=== PATIENT | male | born 1985 | race African-American/Black ===

== ENCOUNTER 2021-04-19 06:54 | Emergency (ER) | payer SELFPAY ==
[2021-04-19 08:08] LABS: #Basophils 0.1 10x3/uL (0.0-0.2); #Eosinphils 0.9 10x3/uL (0.0-0.5); #Monocytes 0.8 10x3/uL (0.0-1.1); %Basophils 0.6 % (0.0-2.0); %Monocytes 9.5 % (0.0-10.0); %Neutrophils 59.7 % (40.0-75.0); Hemoglobin 13.6 g/dL (13.5-17.5); Mean Corpuscular HGB CONC 30.6 g/dL (32.0-36.0); Mean Corpuscular Hemoglobin 24.5 pg (27.0-33.0); Mean Corpuscular Volume 80.2 fl (81.2-95.1); Platelet Count 220 10x3/uL (150-450); RBC Distribution Width 13.7 % (11.5-14.5); Red Blood Cell (RBC) Count 5.55 10x6/uL (4.32-5.72); White Blood Cell (WBC) Count 8.4 10x3/uL (3.5-10.5)
[2021-04-19] MEDS ORDERED: Sucralfate 1 GM/10 ML UDCUP ONE (08:09)
[2021-04-19] MEDS ORDERED: Pantoprazole 40 MG VIAL ONE (08:10)
[2021-04-19 08:28] LABS: ALT (SGPT) 24 U/L (8-55); AST (SGOT) 21 U/L (5-34); Albumin 4.2 g/dL (3.5-5.0); Alkaline Phosphatase 85 U/L (40-110); Anion Gap 13 mmol/L (10-20); BUN (Urea Nitrogen) 12 mg/dL (8.9-20.6); Bilirubin, Total 0.5 mg/dL (0.2-1.2); Calc. Creatinine Clearance 0 mL/min (70-130); Calcium 9.6 mg/dL (7.8-10.44); Carbon Dioxide 24 mmol/L (22-29); Chloride 108 mmol/L (98-107); Globulin 3.7 g/dL (2.4-3.5); Glucose 96 mg/dL (70-105); Lipase 85 U/L (8-78); Potassium 4.4 mmol/L (3.5-5.1); Protein, Total 7.9 g/dL (6.0-8.3); Sodium 141 mmol/L (136-145)
== END 2021-04-19 10:23 | disposition home or self-care (01) ==
LOC: CSHERS 06:54
DX: K85.90 Acute pancreatitis without necrosis or infection, unspecified (principal); K29.71 Gastritis, unspecified, with bleeding
CPT/HCPCS: 80053; 83690; 85025; 96374; C9113

== ENCOUNTER 2022-01-19 10:13 | Emergency (ER) | payer SELFPAY ==
[2022-01-19 11:04] LABS: #Basophils 0.1 10x3/uL (0.0-0.2); #Eosinphils 0.4 10x3/uL (0.0-0.5); #Monocytes 0.7 10x3/uL (0.0-1.1); #Neutrophils 4.1 10x3/uL (1.5-8.4); %Basophils 0.7 % (0.0-2.0); %Eosinophils 5.8 % (0.0-6.0); %Lymphocytes 20.7 % (18.0-47.0); %Monocytes 10.9 % (0.0-10.0); %Neutrophils 61.8 % (40.0-75.0); Hemoglobin 14.2 g/dL (13.5-17.5); Mean Corpuscular HGB CONC 32.1 g/dL (32.0-36.0); Mean Corpuscular Hemoglobin 24.7 pg (27.0-33.0); Mean Corpuscular Volume 76.9 fl (81.2-95.1); Mean Platelet Volume 10.6 fl (7.4-10.4); Platelet Count 223 10x3/uL (150-450); RBC Distribution Width 13.6 % (11.5-14.5); Red Blood Cell (RBC) Count 5.75 10x6/uL (4.32-5.72); White Blood Cell (WBC) Count 6.7 10x3/uL (3.5-10.5)
[2022-01-19 11:16] LABS: ALT (SGPT) 29 U/L (8-55); AST (SGOT) 25 U/L (5-34); Albumin 3.9 g/dL (3.5-5.0); Alkaline Phosphatase 67 U/L (40-110); Anion Gap 15 mmol/L (10-20); BUN (Urea Nitrogen) 13 mg/dL (8.9-20.6); Bilirubin, Total 0.6 mg/dL (0.2-1.2); Calc. Creatinine Clearance 0 mL/min (70-130); Calcium 8.9 mg/dL (7.8-10.44); Carbon Dioxide 23 mmol/L (22-29); Chloride 104 mmol/L (98-107); Globulin 3.8 g/dL (2.4-3.5); Glucose 93 mg/dL (70-105); Lipase 22 U/L (8-78); Potassium 4.2 mmol/L (3.5-5.1); Protein, Total 7.7 g/dL (6.0-8.3); Sodium 138 mmol/L (136-145)
== END 2022-01-19 12:10 | disposition home or self-care (01) ==
LOC: CSHERS 10:13
DX: R10.13 Epigastric pain (principal); K21.9 Gastro-esophageal reflux disease without esophagitis; J45.909 Unspecified asthma, uncomplicated; Z87.19 Personal history of other diseases of the digestive system
CPT/HCPCS: 80053; 83690; 85025; 99284

== ENCOUNTER 2022-03-14 17:19 | Emergency (ER) | payer OTHER, SELFPAY | END 2022-03-14 19:20 | disposition home or self-care (01) | LOC: CSHERS 17:19 | DX: S09.90XA Unspecified injury of head, initial encounter (principal); M54.2 Cervicalgia; G89.11 Acute pain due to trauma; K21.9 Gastro-esophageal reflux disease without esophagitis; V49.40XA Driver injured in collision with unspecified motor vehicles in traffic accident, initial encounter | CPT/HCPCS: 70450; 72125; 93005 ==

== ENCOUNTER 2023-08-17 10:26 | Emergency (ER) | payer OTHER, SELFPAY ==
[~2023-08-17 10:26] MED LIST: Iopamidol 300 61% 100 ML VIAL FS ONE
[2023-08-17] MEDS ORDERED: Lidocaine 2% Viscous Solution 10 ML, Aluminum & Magnesium Hydroxide 30 ML SSW SCH (11:00)
[2023-08-17 11:14] LABS: #Eosinphils 0.3 10x3/uL (0.0-0.5); #Monocytes 0.7 10x3/uL (0.0-1.1); #Neutrophils 5.3 10x3/uL (1.5-8.4); %Basophils 0.5 % (0.0-2.0); %Eosinophils 3.4 % (0.0-6.0); %Lymphocytes 23.6 % (18.0-47.0); %Monocytes 8.1 % (0.0-10.0); %Neutrophils 64.3 % (40.0-75.0); Hematocrit 45.8 % (38.8-50.0); Hemoglobin 14.6 g/dL (13.5-17.5); Mean Corpuscular HGB CONC 31.9 g/dL (32.0-36.0); Mean Corpuscular Hemoglobin 24.8 pg (27.0-33.0); Mean Corpuscular Volume 77.8 fl (81.2-95.1); Mean Platelet Volume 10.5 fl (7.4-10.4); Platelet Count 283 10x3/uL (150-450); RBC Distribution Width 13.5 % (11.5-14.5); Red Blood Cell (RBC) Count 5.89 10x6/uL (4.32-5.72); White Blood Cell (WBC) Count 8.2 10x3/uL (3.5-10.5)
[2023-08-17 11:36] LABS: Bilirubin Neg (Negative); Blood, Urine 10 (Negative); Clarity Clear (Clear); Glucose, Urine (Dipstick) Normal (Negative); Ketone, Urine Negative (Negative); Leukocyte Negative (Negative); Nitrite Negative (Negative); Protein, Urine (Dipstick) Negative (Neg-Trace); Urobilinogen Normal mg/dL (Less than 2)
[2023-08-17 11:47] LABS: ALT (SGPT) 28 U/L (8-55); AST (SGOT) 20 U/L (5-34); Albumin 4.4 g/dL (3.5-5.0); Alkaline Phosphatase 74 U/L (40-110); Anion Gap 14 mmol/L (10-20); BUN (Urea Nitrogen) 9 mg/dL (8.9-20.6); Bilirubin, Total 0.6 mg/dL (0.2-1.2); Calc. Creatinine Clearance 0 mL/min (70-130); Calcium 9.4 mg/dL (7.8-10.44); Carbon Dioxide 24 mmol/L (22-29); Chloride 105 mmol/L (98-107); Estimated GFR 90; Glucose 96 mg/dL (70-105); Lipase 29 U/L (8-78); Potassium 4.2 mmol/L (3.5-5.1); Protein, Total 7.4 g/dL (6.0-8.3); Sodium 139 mmol/L (136-145)
[2023-08-17 11:53] LABS: Troponin I Less than 0.010 ng/mL (< 0.028)
[2023-08-17 12:38] LABS: Bacteria/HPF Rare-Few HPF (None Seen); CAUTI Indications for Culture Pelvic or flank pain; RBC/HPF 0-3 HPF (0-3); Squamous Epithelial None Seen HPF (0-3); Urine Culture Reflex No No; WBC/HPF 0-3 HPF (0-3)
[2023-08-17 12:39] LABS: Transitional Epithelial 0-3 HPF (None Seen)
== END 2023-08-17 13:49 | disposition home or self-care (01) ==
LOC: CSHERS 10:26
DX: R10.84 Generalized abdominal pain (principal)
CPT/HCPCS: 74177; 80053; 81001; 83690; 84484; 85025; 93005; Q9967

== ENCOUNTER 2024-08-30 16:37 | Emergency (ER) | payer SELFPAY ==
[2024-08-30] MEDS ORDERED: Ibuprofen 800 MG TAB ONE (17:03)
== END 2024-08-30 17:12 | disposition home or self-care (01) ==
LOC: CSHERS 16:37
DX: H92.03 Otalgia, bilateral (principal)
CPT/HCPCS: 99282

== ENCOUNTER 2025-03-18 05:33 | Emergency (ER) | payer SELFPAY ==
[2025-03-18] MEDS ORDERED: Ketorolac Tromethamine 30 MG (1 mL) VIAL ONE (05:52)
== END 2025-03-18 06:03 | disposition home or self-care (01) ==
LOC: CSHERS 05:33
DX: S29.012A Strain of muscle and tendon of back wall of thorax, initial encounter (principal); M62.830 Muscle spasm of back; X58.XXXA Exposure to other specified factors, initial encounter
CPT/HCPCS: 96372; 99283; J1885

== ENCOUNTER 2025-06-30 07:08 | Emergency (ER) | payer SELFPAY ==
[2025-06-30] MEDS ORDERED: Proparacaine 0.5% Opth 15 ML BOT ONE (07:48)
[2025-06-30] MEDS ORDERED: Fluorescein Opthalmic Strip ONE (07:48)
== END 2025-06-30 08:10 | disposition home or self-care (01) ==
LOC: CSHERS 07:08
DX: H57.12 Ocular pain, left eye (principal)
CPT/HCPCS: 99283